=== PATIENT | female | born 1980 | race Two or more races ===

== ENCOUNTER → 2016-08-25 17:06 | Emergency (ER) | payer BC ==
[2016-08-25 18:16] VITALS: BP 126/71
== END | disposition left against medical advice (07) ==
LOC: ED 17:06
DX: R10.2 Pelvic and perineal pain (principal); Z53.21 Procedure and treatment not carried out due to patient leaving prior to being seen by health care provider

== ENCOUNTER 2016-09-06 15:13 | Emergency (ER) | payer BC ==
[2016-09-06] MEDS ORDERED: NS 0.9% 1000 ML* 1,000 ML IV ONE (17:43)
[2016-09-06] MEDS ORDERED: Aspirin TAB* 325 MG PO ONE (17:43)
[2016-09-06] MEDS ORDERED: Al Hydrox/Mg Hydrox/Simet LIQ* 30 ML UDC PO ONE (17:44)
[2016-09-06] MEDS ORDERED: Lidocaine 2% VISCOUS* 15 ML UDC PO ONE (17:44)
[2016-09-06 18:27] LABS: Hematocrit 31 % (35-47); Hemoglobin 9.5 g/dl (12.0-16.0); Mean Corpuscular HGB Conc 30 g/dl (31-36); Mean Corpuscular Hemoglobin 20 pg (27-31); Mean Corpuscular Volume 65 fL (80-97); Mean Platelet Volume 9 um3 (7.4-10.4); Red Blood Count 4.79 10^6/ul (4.0-5.4); Red Cell Distribution Width 18 % (10.5-15); White Blood Count 6.9 10^3/ul (3.5-10.8)
[2016-09-06 18:28] LABS: Add Diff/Slide Review? Slide Review Added; Comments Flag Yes
[2016-09-06 18:32] LABS: Urine Bacteria Absent (Absent); Urine Bilirubin Negative (Negative); Urine Glucose Negative (Negative); Urine Nitrite Negative (Negative)
[2016-09-06 18:39] LABS: ALT 10 U/L (7-52); AST 17 U/L (13-39); Albumin 4.4 g/dL (3.2-5.2); Alkaline Phosphatase 60 U/L (34-104); Anion Gap 6 mmol/L (2-11); BUN/Creatinine Ratio 13.6 (8-20); Blood Urea Nitrogen 9 mg/dL (6-24); C Reactive Protein < 1.00 mg/L (< 5.00); CO2 Carbon Dioxide 24 mmol/L (22-32); Calcium 9.1 mg/dL (8.6-10.3); Chloride 105 mmol/L (101-111); Creatine Kinase 107 U/L (10-223); EGFR African American 129.6 (>60); EGFR Non-African American 100.8 (>60); Globulin 3.3 g/dL (2-4); Glucose 85 mg/dL (70-100); Lipase 19 U/L (11.0-82.0); Magnesium 2.3 mg/dL (1.9-2.7); Potassium 3.6 mmol/L (3.5-5.0); Sodium 135 mmol/L (133-145); Total Protein 7.7 g/dL (6.4-8.9)
[2016-09-06] MEDS ORDERED: Iohexol 350* (CONTRAST) 500 ML MDV IV ONE (18:57)
--- NOTE | 2016-09-06 19:16 | RAD ---
HISTORY: Chest pain, shortness of breath COMPARISONS: None TECHNIQUE: Multiple contiguous axial CT scans of the chest were obtained after the administration of nonionic intravenous contrast, timed to the pulmonary arterial phase of contrast enhancement.. Coronal and sagittal multiplanar reformations are also submitted for review. FINDINGS: NECK AND THYROID: The lower neck and thyroid are unremarkable. CHEST WALL: There is no lower cervical, axillary, or supraclavicular lymphadenopathy by size criteria. HEART AND PERICARDIUM: The heart is unremarkable. AORTA AND PULMONARY VASCULATURE: There is no pulmonary arterial filling defect to suggest pulmonary embolism. There is no linear filling defect within the aorta to suggest aortic dissection. MEDIASTINUM: There is no mediastinal lymphadenopathy by size criteria. JORGE A: There is no hilar lymphadenopathy by size criteria. AIRWAY AND ESOPHAGUS: The airway is unremarkable, without endobronchial filling defect. The esophagus is grossly normal. LUNG PARENCHYMA: The lungs are clear. PLEURA: No pleural abnormalities are noted. UPPER ABDOMEN: The upper abdomen is unremarkable. BONES AND SOFT TISSUES: No bone or soft tissue abnormalities are noted. OTHER: None. IMPRESSION: NO PULMONARY ARTERIAL FILLING DEFECT TO SUGGEST PULMONARY EMBOLISM.
[2016-09-06 19:18] LABS: TSH (Thyroid Stimulating Horm) 0.75 mcIU/mL (0.34-5.60)
--- NOTE | 2016-09-06 19:58 | RAD ---
HISTORY: Calf pain, short of breath COMPARISONS: None relevant TECHNIQUE: Multiple transverse and longitudinal ultrasound images were obtained of the bilateral lower extremities from the level of the common femoral vein inferiorly through to the infrapopliteal veins using grayscale, color Doppler, and spectral Doppler imaging with and without compression and with augmentation. FINDINGS: VEINS: The venous system of the bilateral lower extremities is compressible throughout its course, with normal flow on color Doppler imaging and normal response to augmentation on spectral Doppler imaging. SOFT TISSUES: Unremarkable. OTHER FINDINGS: None. IMPRESSION: NO RIGHT LOWER EXTREMITY DEEP VEIN THROMBOSIS. NO LEFT LOWER EXTREMITY DEEP VEIN THROMBOSIS
[2016-09-06 20:41] VITALS: BP 143/74
--- NOTE | 2016-09-08 07:18 | ED ---
Iván Rendon Anna, scribed for Jayesh Saxena MD on 09/06/16 at 1749 . HPI Chest Pain - HPI Summary HPI Summary: Patient is a 36 y/o female coming to [facility] presenting with CP that began this morning. The pain woke her up when she felt SOB at 0700. It felt like a burning pain and as if her heart was trying to beat but couldnt. The pain is currently of severity 6/10. She additionally felt a vein throbbing in her neck, palpitations, nausea, diaphoresis, and bilateral lower extremity pain. She sometimes has bilateral lower extremity pain at baseline. Denies abd pain. The CP is exacerbated by walking and exertion. Denies Hx of GERD. She takes Radha for allergies and Minocycline for acne. Her PCP has told her she has hyperthyroidism. She has a standing appointment for this in two days. - History of Current Complaint Chief Complaint: EDChestPainROMI Time Seen by Provider: 09/06/16 17:31 Hx Obtained From: Patient Onset/Duration: Started Hours Ago, Still Present Initial Severity: Moderate Current Severity: Moderate Pain Intensity: 6 Pain Scale Used: 0-10 Numeric Chest Pain Radiates To:: Neck Character: Pressure/Squeezing Aggravating Factor(s): Exertion Alleviating Factor(s): Nothing Associated Signs and Symptoms: Positive: Chest Pain, Shortness of Breath, Lightheadedness, Diaphoresis, Nausea, Palpitations, Calf Pain/Swelling - Allergy/Home Medications Allergies/Adverse Reactions: Allergies Allergy/AdvReac Type Severity Reaction Status Date / Time No Known Allergies Allergy Verified 09/06/16 17:44 PMH/Surg Hx/FS Hx/Imm Hx Cardiovascular History: Denies: Hx Coronary Artery Disease Respiratory History: Reports: Hx Seasonal Allergies EENT History: Reports: Hx Seasonal Allergies, Other - acne Denies: Hx Deafness Neurological History: Denies: Hx Developmental Delay Infectious Disease History: Denies: Traveled Outside the [place] in Last 30 Days - Family History Known Family History: Positive: Cardiac Disease - Hx in mother and father - Social History Occupation: Employed Full-time Lives: With Family Alcohol Use: None Hx Substance Use: No Substance Use Type: Reports: None Hx Tobacco Use: No Smoking Status (MU): Never Smoked Tobacco Review of Systems Positive: Skin Diaphoresis Positive: Palpitations, Chest Pain Positive: Shortness Of Breath Positive: Nausea. Negative: Abdominal Pain Musculoskeletal: Other - bilateral lower extremity pain All Other Systems Reviewed And Are Negative: Yes Physical Exam Triage Information Reviewed: Yes Vital Signs On Initial Exam: Initial Vitals Temp Pulse Resp BP Pulse Ox 98.2 F 97 15 144/78 100 09/06/16 15:14 09/06/16 15:14 09/06/16 15:14 09/06/16 15:14 09/06/16 15:14 Vital Signs Reviewed: Yes Appearance: Positive: Well-Appearing, No Pain Distress Skin: Positive: Warm, Skin Color Reflects Adequate Perfusion, Dry Head/Face: Positive: Normal Head/Face Inspection Eyes: Positive: EOMI, CARMELA ENT: Positive: Normal ENT inspection Neck: Positive: Supple, Nontender Respiratory/Lung Sounds: Positive: Clear to Auscultation, Breath Sounds Present Cardiovascular: Positive: RRR Abdomen Description: Positive: Nontender, Soft Bowel Sounds: Positive: Present Musculoskeletal: Positive: Strength/ROM Intact, Other - Some bilateral tenderness in calves. Negative: Edema Left, Edema Right Neurological: Positive: Normal, Sensory/Motor Intact, Alert, Oriented to Person Place, Time Psychiatric: Positive: Anxious Diagnostics - Vital Signs Vital Signs Temp Pulse Resp BP Pulse Ox 09/06/16 15:14 98.2 F 97 15 144/78 100 - Laboratory Lab Results: Lab Results 09/06/16 09/06/16 09/06/16 Range/Units 18:00 18:10 18:10 WBC 6.9 (3.5-10.8) 10^3/ul RBC 4.79 (4.0-5.4) 10^6/ul Hgb 9.5 L (12.0-16.0) g/dl Hct 31 L (35-47) % MCV 65 L (80-97) fL MCH 20 L (27-31) pg MCHC 30 L (31-36) g/dl RDW 18 H (10.5-15) % Plt Count 201 (150-450) 10^3/ul MPV 9 (7.4-10.4) um3 Neut % (Auto) 64.9 (38-83) % Lymph % (Auto) 26.5 (25-47) % Anderson % (Auto) 7.3 (1-9) % Eos % (Auto) 0.8 (0-6) % Baso % (Auto) 0.5 (0-2) % Absolute Neuts (auto) 4.5 (1.5-7.7) 10^3/ul Absolute Lymphs (auto) 1.8 (1.0-4.8) 10^3/ul Absolute Monos (auto) 0.5 (0-0.8) 10^3/ul Absolute Eos (auto) 0.1 (0-0.6) 10^3/ul Absolute Basos (auto) 0 (0-0.2) 10^3/ul Absolute Nucleated RBC 0 10^3/ul Nucleated RBC % 0 INR (Anticoag Therapy) 1.02 (0.89-1.11) APTT 27.0 (26.0-36.3) seconds Sodium (133-145) mmol/L Potassium (3.5-5.0) mmol/L Chloride (101-111) mmol/L Carbon Dioxide (22-32) mmol/L Anion Gap (2-11) mmol/L BUN (6-24) mg/dL Creatinine (0.51-0.95) mg/dL Est GFR ( Amer) (>60) Est GFR (Non-Af Amer) (>60) BUN/Creatinine Ratio (8-20) Glucose (70-100) mg/dL Lactic Acid (0.5-2.0) mmol/L Calcium (8.6-10.3) mg/dL Magnesium (1.9-2.7) mg/dL Total Bilirubin (0.2-1.0) mg/dL AST (13-39) U/L ALT (7-52) U/L Alkaline Phosphatase (34-104) U/L Total Creatine Kinase (10-223) U/L CK-MB (CK-2) (0.6-6.3) ng/mL Troponin I (<0.04) ng/mL C-Reactive Protein (< 5.00) mg/L Total Protein (6.4-8.9) g/dL Albumin (3.2-5.2) g/dL Globulin (2-4) g/dL Albumin/Globulin Ratio (1-3) Lipase (11.0-82.0) U/L TSH (0.34-5.60) mcIU/mL Beta HCG, Quant mIU/mL Urine Color Yellow Urine Appearance Clear Urine pH 7.0 (5-9) Ur Specific [place] 1.018 (1.010-1.030) Urine Protein Negative (Negative) Urine Ketones Negative (Negative) Urine Blood 1+ H (Negative) Urine Nitrate Negative (Negative) Urine Bilirubin Negative (Negative) Urine Urobilinogen Negative (Negative) Ur Leukocyte Esterase Trace H (Negative) Urine WBC (Auto) Trace(0-5/hpf) (Absent) Urine RBC (Auto) Trace(0-2/hpf) (Absent) Ur Squamous Epith Cells Present H (Absent) Urine Bacteria Absent (Absent) Urine Glucose Negative (Negative) 09/06/16 09/06/16 Range/Units 18:10 18:10 WBC (3.5-10.8) 10^3/ul RBC (4.0-5.4) 10^6/ul Hgb (12.0-16.0) g/dl Hct (35-47) % MCV (80-97) fL MCH (27-31) pg MCHC (31-36) g/dl RDW (10.5-15) % Plt Count (150-450) 10^3/ul MPV (7.4-10.4) um3 Neut % (Auto) (38-83) % Lymph % (Auto) (25-47) % Anderson % (Auto) (1-9) % Eos % (Auto) (0-6) % Baso % (Auto) (0-2) % Absolute Neuts (auto) (1.5-7.7) 10^3/ul Absolute Lymphs (auto) (1.0-4.8) 10^3/ul Absolute Monos (auto) (0-0.8) 10^3/ul Absolute Eos (auto) (0-0.6) 10^3/ul Absolute Basos (auto) (0-0.2) 10^3/ul Absolute Nucleated RBC 10^3/ul Nucleated RBC % INR (Anticoag Therapy) (0.89-1.11) APTT (26.0-36.3) seconds Sodium 135 (133-145) mmol/L Potassium 3.6 (3.5-5.0) mmol/L Chloride 105 (101-111) mmol/L Carbon Dioxide 24 (22-32) mmol/L Anion Gap 6 (2-11) mmol/L BUN 9 (6-24) mg/dL Creatinine 0.66 (0.51-0.95) mg/dL Est GFR ( Amer) 129.6 (>60) Est GFR (Non-Af Amer) 100.8 (>60) BUN/Creatinine Ratio 13.6 (8-20) Glucose 85 (70-100) mg/dL Lactic Acid 0.7 (0.5-2.0) mmol/L Calcium 9.1 (8.6-10.3) mg/dL Magnesium 2.3 (1.9-2.7) mg/dL Total Bilirubin 1.50 H (0.2-1.0) mg/dL AST 17 (13-39) U/L ALT 10 (7-52) U/L Alkaline Phosphatase 60 (34-104) U/L Total Creatine Kinase 107 (10-223) U/L CK-MB (CK-2) 0.8 (0.6-6.3) ng/mL Troponin I 0.00 (<0.04) ng/mL C-Reactive Protein < 1.00 (< 5.00) mg/L Total Protein 7.7 (6.4-8.9) g/dL Albumin 4.4 (3.2-5.2) g/dL Globulin 3.3 (2-4) g/dL Albumin/Globulin Ratio 1.3 (1-3) Lipase 19 (11.0-82.0) U/L TSH 0.75 (0.34-5.60) mcIU/mL Beta HCG, Quant < 0.60 mIU/mL Urine Color Urine Appearance Urine pH (5-9) Ur Specific [place] (1.010-1.030) Urine Protein (Negative) Urine Ketones (Negative) Urine Blood (Negative) Urine Nitrate (Negative) Urine Bilirubin (Negative) Urine Urobilinogen (Negative) Ur Leukocyte Esterase (Negative) Urine WBC (Auto) (Absent) Urine RBC (Auto) (Absent) Ur Squamous Epith Cells (Absent) Urine Bacteria (Absent) Urine Glucose (Negative) Result Diagrams: 09/06/16 18:10 09/06/16 18:10 Lab Statement: Any lab studies that have been ordered have been reviewed, and results considered in the medical decision making process. - EKG 1528 Cardiac Rate: NL - 88 bpm EKG Rhythm: Sinus Rhythm Ectopy: None EKG Interpretation: LVH Chest Pain Course/Dx - Course Assessment/Plan: disposition pending at shift change. - Diagnoses Provider Diagnoses: Chest pain Discharge - Discharge Plan Condition: Stable Disposition: HOME Patient Education Materials: Chest Pain (ED) Referrals: [facility] [place] [facility] [place]] - 2 Days The documentation as recorded by the Iván valero Anna accurately reflects the service I personally performed and the decisions made by me, Jayesh Saxena MD.
== END 2016-09-06 20:40 | disposition home or self-care (01) ==
LOC: ED 15:13
DX: R07.9 Chest pain, unspecified (principal); R06.02 Shortness of breath; R42 Dizziness and giddiness; R11.0 Nausea; R00.2 Palpitations; R61 Generalized hyperhidrosis; M79.606 Pain in leg, unspecified
CPT/HCPCS: 36415; 71275; 80053; 81003; 81015; 82550; 82553; 83605; 83690; 83735; 84443; 84484; 84702; 85025; 85610; 85730; 86140; 87086; 93005; 93970; 99283; A9270-GY; Q9967

== ENCOUNTER 2018-03-04 19:44 | Emergency (ER) | payer BC ==
[2018-03-04] MEDS ORDERED: cloNIDine TAB* 0.1 MG PO ONE (20:59)
[2018-03-04] MEDS ORDERED: Ibuprofen TAB* 800 MG PO ONE (21:00)
[2018-03-04 21:09] LABS: ABS Basophils 0 10^3/ul (0-0.2); ABS Eosinophils 0.1 10^3/ul (0-0.6); ABS Lymphocytes 2.2 10^3/ul (1.0-4.8); ABS Monocytes 0.5 10^3/ul (0-0.8); ABS Neutrophils 3.9 10^3/ul (1.5-7.7); ABS Nucleated RBC 0 10^3/ul; Eosinophil % 1.4 % (0-6); Hematocrit 41 % (35-47); Hemoglobin 13.7 g/dl (12.0-16.0); Mean Corpuscular HGB Conc 34 g/dl (31-36); Mean Corpuscular Hemoglobin 28 pg (27-31); Mean Corpuscular Volume 82 fL (80-97); Nucleated Red Blood Cells % 0.1; Platelet Count 246 10^3/ul (150-450); Red Blood Count 4.95 10^6/ul (4.00-5.40); Red Cell Distribution Width 16 % (10.5-15); White Blood Count 6.8 10^3/ul (3.5-10.8)
--- NOTE | 2018-03-04 21:13 | ED ---
Hypertension - HPI Summary HPI Summary: Pt is a 37 y/o female who presents to the ED c/o HTN. She was sent here from her job. Pt states this morning she felt disconnected and around 16:00 she began to feel dizzy, lightheaded, nauseated, and had a headache with blurred vision. As per anthony, she was talking non-sense as well. Pt has a hx of HTN and was prescribed medication, but never took them. Her BP [employer] was 171/112. - History of Current Complaint Chief Complaint: EDHypertension Stated Complaint: HIGH BP Time Seen by Provider: 03/04/18 20:47 Hx Obtained From: Patient, Family/Music Historian - Fiance Onset/Duration: Started Hours Ago - 16:00, Still Present Timing: Constant Reported Blood Pressure Prior To Arrival: 171/112 Aggravating Factor(s): Other: - Not taking BP medications Alleviating Factor(s): Nothing Associated Signs & Symptoms: Headaches, Dizziness, Other: - Nausea, lightheadedness Related Hx: Rx Non-Compliance - Allergies/Home Medications Allergies/Adverse Reactions: Allergies Allergy/AdvReac Type Severity Reaction Status Date / Time No Known Allergies Allergy Verified 03/04/18 20:40 PMH/Surg Hx/FS Hx/Imm Hx Cardiovascular History: Reports: Hx Hypertension Denies: Hx Coronary Artery Disease Respiratory History: Reports: Hx Seasonal Allergies Sensory History: Denies: Hx Deafness Neurological History: Denies: Hx Developmental Delay Infectious Disease History: No Infectious Disease History: Denies: Traveled Outside the [place] in Last 30 Days - Family History Known Family History: Positive: Cardiac Disease - Hx in mother and father - Social History Alcohol Use: Occasionally Hx Substance Use: No Substance Use Type: Reports: None Hx Tobacco Use: No Smoking Status (MU): Never Smoked Tobacco Review of Systems Positive: Blurred Vision Positive: Nausea Neurological: Other - Dizziness, lightheadedness Positive: Headache All Other Systems Reviewed And Are Negative: Yes Physical Exam - Summary Physical Exam Summary: VITAL SIGNS: Reviewed. GENERAL: Patient is a well-developed and nourished FEMALE who is lying comfortable in the stretcher. Patient is not in any acute respiratory distress. HEAD AND FACE: No signs of trauma. No ecchymosis, hematomas or skull depressions. No sinus tenderness. EYES: PERRLA, EOMI x 2, No injected conjunctiva, no nystagmus. EARS: Hearing grossly intact. Ear canals and tympanic membranes are within normal limits. MOUTH: Oropharynx within normal limits. NECK: Supple, trachea is midline, no adenopathy, no JVD, no carotid bruit, no c- spine tenderness, neck with full ROM. CHEST: Symmetric, no tenderness at palpation LUNGS: Clear to auscultation bilaterally. No wheezing or crackles. CVS: Regular rate and rhythm, S1 and S2 present, no murmurs or gallops appreciated. ABDOMEN: Soft, non-tender. No signs of distention. No rebound no guarding, and no masses palpated. Bowel sounds are normal. EXTREMITIES: FROM in all major joints, no edema, no cyanosis or clubbing. NEURO: Alert and oriented x 3. No acute neurological deficits. Speech is normal and follows commands. SKIN: Dry and warm Triage Information Reviewed: Yes Vital Signs On Initial Exam: Initial Vitals Temp Pulse Resp BP Pulse Ox 97.9 F 77 20 149/99 100 03/04/18 20:08 03/04/18 20:08 03/04/18 20:08 03/04/18 20:08 03/04/18 20:08 Vital Signs Reviewed: Yes Diagnostics - Vital Signs Vital Signs Temp Pulse Resp BP Pulse Ox 03/04/18 20:36 79 15 144/97 99 03/04/18 20:08 97.9 F 77 20 149/99 100 - Laboratory Lab Results: Lab Results 03/04/18 Range/Units 20:48 WBC 6.8 (3.5-10.8) 10^3/ul RBC 4.95 (4.00-5.40) 10^6/ul Hgb 13.7 (12.0-16.0) g/dl Hct 41 (35-47) % MCV 82 (80-97) fL MCH 28 (27-31) pg MCHC 34 (31-36) g/dl RDW 16 H (10.5-15) % Plt Count 246 (150-450) 10^3/ul MPV 8.0 (7.4-10.4) um3 Neut % (Auto) 57.8 (38-83) % Lymph % (Auto) 33.0 (25-47) % Mcdonough % (Auto) 7.4 H (0-7) % Eos % (Auto) 1.4 (0-6) % Baso % (Auto) 0.4 (0-2) % Absolute Neuts (auto) 3.9 (1.5-7.7) 10^3/ul Absolute Lymphs (auto) 2.2 (1.0-4.8) 10^3/ul Absolute Monos (auto) 0.5 (0-0.8) 10^3/ul Absolute Eos (auto) 0.1 (0-0.6) 10^3/ul Absolute Basos (auto) 0 (0-0.2) 10^3/ul Absolute Nucleated RBC 0 10^3/ul Nucleated RBC % 0.1 Result Diagrams: 03/04/18 20:48 03/04/18 20:48 Lab Statement: Any lab studies that have been ordered have been reviewed, and results considered in the medical decision making process. - EKG 20:44 Cardiac Rate: NL - 68 bpm EKG Rhythm: Sinus Rhythm EKG Interpretation: LVH Hypertension Course/Dx - Course Course Of Treatment: Pt is a 37 y/o female who presents to the ED c/o HTN. She was sent here from her job. Pt states this morning she felt disconnected and around 16:00 she began to feel dizzy, lightheaded, nauseated, and had a headache with blurred vision. As per anthony, she was talking non-sense as well. Pt has a hx of HTN and was prescribed medication, but never took them. Her BP [employer] was 171/112. A physical exam was normal. An EKG revealed a rate of 68 bpm and LVH. Final dx is hypertension. Pt is discharged home and is to follow up with his PCP on 03/07/18. - Diagnoses Provider Diagnoses: Hypertension Discharge - Sign-Out/Discharge Documenting (check all that apply): Patient Departure - Discharge - Discharge Plan Condition: Stable Disposition: HOME Patient Education Materials: Hypertension (ED) Referrals: Non Staff,Doctor [Primary Care Provider] - 3 Days Additional Instructions: RETURN TO THE EMERGENCY DEPARTMENT FOR CHANGING OR WORSENING SYMPTOMS. FOLLOW UP WITH PCP IN 1-2 DAYS. - Attestation Statements Document Initiated by Scribe: Yes Documenting Scribe: Verónica [place] Provider For Whom Scribe is Documenting (Include Credential): Julio Johnson MD Scribe Attestation: IVerónica, scribed for Julio Johnson MD on 03/04/18 at 2233.
[2018-03-04] MEDS ORDERED: Potassium Chlor TAB* 20 MEQ TAB.ER PO ONE (21:49)
[2018-03-04] MEDS ORDERED: Butalb/Acetamin/Caff TAB* 1 TAB PO ONE (22:33)
[2018-03-04 22:49] VITALS: BP 147/98
== END 2018-03-04 22:45 | disposition home or self-care (01) ==
LOC: ED 19:44
DX: I10 Essential (primary) hypertension (principal); R42 Dizziness and giddiness; R51 Headache; H53.8 Other visual disturbances
CPT/HCPCS: 36415; 80053; 83735; 84702; 85025; 86703; 93005; 99283; A9270-GY